=== PATIENT | male | born 2000 | race American Indian/Alaskan Native ===

== ENCOUNTER 2020-03-20 10:47 | Emergency (ER) | payer SELFPAY ==
[2020-03-20 11:04] VITALS: BP 151/73
[2020-03-20] MEDS ORDERED: IBUPROFEN 600 MG TAB PO ONE ×2 (11:54→11:55)
--- NOTE | 2020-03-20 11:59 | Emergency Department Report ---
ED Lower Extremity HPI - General Chief Complaint: Extremity Injury, Lower Stated Complaint: LFT LEG PAIN/INJURY Time Seen by Provider: 03/20/20 11:54 Source: patient Mode of arrival: Ambulatory Limitations: No Limitations - History of Present Illness Initial Comments: The patient was evaluated in the emergency department for symptoms described in the history of present illness. He/she was evaluated in the context of the global COVID-19 pandemic, which necessitated consideration that the patient might be at risk for infection with the virus that causes COVID-19. Institutional protocols and algorithms that pertain to the evaluation of patients at risk for COVID-19 are in a state of rapid change based on information released by regulatory bodies including the CDC and federal and state organizations. These policies and algorithms were followed during the patient's care in the emergency department. Please note that these policies, procedures and recommendations changed on a rapid basis. 19-year-old -[place] male presents to the emergency room stating that he slipped down steps this morning while at home. Patient comes in complaining of left ankle pain. Patient rated his pain at 8 out of 10. Difficulty to ambulate pain with movement. Up-to-date in all vaccines. No past medical history. Currently takes no medications on a daily basis and has no known drug allergies. Denies any head injury or loss of consciousness. MD Complaint: ankle injury -: This morning Time: 09:15 Injury: Ankle: Left Type of Injury: inversion Place: home Severity: severe Severity scale (0 -10): 8 Context: fall - Related Data Previous Rx's Medication Instructions Recorded Last Taken Type Ibuprofen [Motrin 600 MG tab] 600 mg PO Q8H PRN #30 tablet 03/20/20 Unknown Rx Allergies Allergy/AdvReac Type Severity Reaction Status Date / Time No Known Allergies Allergy Unverified 03/20/20 11:01 ED Review of Systems ROS: Stated complaint: LFT LEG PAIN/INJURY Other details as noted in HPI Comment: All other systems reviewed and negative ED Past Medical Hx - Past Medical History Previous Medical History?: No - Surgical History Past Surgical History?: No - Social History Smoking Status: Current Every Day Smoker Substance Use Type: Alcohol - Medications Home Medications: Home Medications Medication Instructions Recorded Confirmed Last Taken Type Ibuprofen [Motrin 600 MG tab] 600 mg PO Q8H PRN #30 tablet 03/20/20 Unknown Rx ED Physical Exam - General Limitations: No Limitations General appearance: alert, in distress - Head Head exam: Present: atraumatic, normocephalic - Eye Eye exam: Present: normal appearance - ENT ENT exam: Present: mucous membranes moist - Neck Neck exam: Present: normal inspection, full ROM - Respiratory Respiratory exam: Absent: accessory muscle use - Cardiovascular Cardiovascular Exam: Present: regular rate, normal rhythm. Absent: systolic murmur, diastolic murmur, rubs, gallop - Expanded Lower Extremity Exam Left Knee exam: Present: normal inspection Lower Leg exam: Present: normal inspection, full ROM Ankle exam: Present: full ROM, tenderness, swelling Foot/Toe exam: Present: normal inspection Gait: Positive: unable to bear weight - Back Exam Back exam: Present: full ROM - Neurological Exam Neurological exam: Present: alert, oriented X3 - Psychiatric Psychiatric exam: Present: normal affect, normal mood - Skin Skin exam: Present: abrasion (Left ankle) ED Course Vital Signs 03/20/20 11:03 Temperature 98.3 F Pulse Rate 65 Respiratory 16 Rate Blood Pressure 151/73 O2 Sat by Pulse 100 Oximetry ED Lower Extremity MDM - Radiology Data Radiology results: report reviewed [facility] [address] [place] [address] XRay Report Signed Patient: MARCO ANTONIO PYLE MR#: [id number] : 2000 Acct:[id number] Age/Sex: 19 / M ADM Date: 03/20/20 Loc: ED Attending Dr: Ordering Physician: NIKOLAI CHAPMAN Date of Service: 03/20/20 Procedure(s): XR ankle 3+V LT Accession Number(s): [id number] cc: NIKOLAI CHAPMAN Fluoro Time In Minutes: LEFT ANKLE RADIOGRAPH, 3 VIEWS INDICATION / CLINICAL INFORMATION: Injury left ankle COMPARISON: None available. FINDINGS: BONES / JOINT(S): No acute displaced fracture or subluxation. No significant arthritis. SOFT TISSUES: Mild soft tissue swelling about the ankle. ADDITIONAL FINDINGS: None. Signer Name: Margarita Caputo MD Signed: 03/20/2020 12:20 PM Workstation Name: [id number] Transcribed By: [facility] Dictated By: Mragarita Caputo MD Electronically Authenticated By: Margarita Caputo MD Signed Date/Time: 03/20/20 1220 DD/ 1219 TD/TT: - Medical Decision Making 19-year-old -[place] male presents to the emergency room stating that he slipped down steps this morning while at home. Patient comes in complaining of left ankle pain. Patient rated his pain at 8 out of 10. Difficulty to ambulate pain with movement. Up-to-date in all vaccines. No past medical history. Currently takes no medications on a daily basis and has no known drug allergies. Denies any head injury or loss of consciousness. X-ray of left ankle has been ordered ibuprofen 600 mg given for pain management. X-rays negative for any fractures or dislocation. Patient be placed in an air splint crutches ibuprofen and to follow-up with Ortho if no improvement. Critical care attestation.: If time is entered above; I have spent that time in minutes in the direct care of this critically ill patient, excluding procedure time. ED Disposition Clinical Impression: Left ankle sprain Qualifiers: Encounter type: initial encounter Involved ligament of ankle: posterior talofibular ligament Qualified Code(s): S93.492A - Sprain of other ligament of left ankle, initial encounter Disposition: TO HOME OR SELFCARE Is pt being admited?: No Does the pt Need Aspirin: No Condition: Stable Instructions: How to Use a Stirrup Ankle Brace, [id number], Ankle Sprain Additional Instructions: X-ray of left ankle is negative for any fractures or dislocations. I am placing you on crutches and an air splint you are being diagnosed as a ankle sprain. Please continue to elevate ice take your pain medication and rest. Follow-up with an orthopedic provider if his symptoms get worse. Prescriptions: Ibuprofen [Motrin 600 MG tab] 600 mg PO Q8H PRN #30 tablet PRN Reason: Pain , Severe (7-10) Referrals: CANDIDA SPEARS MD [Staff Physician] - 3-5 Days Forms: Work/School Release Form(ED)
--- NOTE | 2020-03-20 12:24 | XRay Report ---
LEFT ANKLE RADIOGRAPH, 3 VIEWS INDICATION / CLINICAL INFORMATION: Injury left ankle COMPARISON: None available. FINDINGS: BONES / JOINT(S): No acute displaced fracture or subluxation. No significant arthritis. SOFT TISSUES: Mild soft tissue swelling about the ankle. ADDITIONAL FINDINGS: None. Signer Name: Margarita Caputo MD Signed: 03/20/2020 12:20 PM Workstation Name: [id number]
== END 2020-03-20 13:05 | disposition home or self-care (01) ==
LOC: ED 10:47
DX: S93.492A Sprain of other ligament of left ankle, initial encounter (principal); F17.200 Nicotine dependence, unspecified, uncomplicated; Z79.899 Other long term (current) drug therapy; W01.0XXA Fall on same level from slipping, tripping and stumbling without subsequent striking against object, initial encounter; Y93.89 Activity, other specified; Y92.009 Unspecified place in unspecified non-institutional (private) residence as the place of occurrence of the external cause; Y99.8 Other external cause status